=== PATIENT | male | born 1990 | race Caucasian/White ===

== ENCOUNTER 2016-09-22 17:46 | Emergency (ER) ==
[2016-09-22 17:49] VITALS: BP 174/97; TEMP 100.6; BMI 28.4
[2016-09-22] MEDS ORDERED: ZOFRAN 4 MG/2 ML IVP STA (18:04)
[2016-09-22] MEDS ORDERED: SODIUM CHLORIDE 1,000 ML IV STA ×2 (18:04→18:48)
--- NOTE | 2016-09-22 18:05 | ED.PDOC ---
General ED Provider: Dr. JEMMA WALKER JR Chief Complaint: Nausea/Vomiting Stated Complaint: complains of vomiting and diarrhea that started early this morning. emesis x 4. diarrhea x 8. abdominal pain and body aches with fever [ End ] 100.6 106 18 98% 174/97 7/10 NO ONE AT HOME ILL; [employer] WITH SIMILAR ILLNESS Time Seen by Physician: 18:03 Mode of Arrival: Walk-In Information Source: Patient Exam Limitations: No limitations Nursing and Triage Documentation Reviewed and Agree: No Review of Systems - Review Of Systems Constitutional: Reports: No symptoms Eyes: Reports: No symptoms Ears, Nose, Mouth, Throat: Reports: No symptoms Respiratory: Reports: No symptoms Cardiac: Reports: No symptoms GI: Reports: Abdominal pain, Diarrhea (X8), Nausea, Vomiting : Reports: No symptoms Musculoskeletal: Reports: No symptoms Skin: Reports: No symptoms Neurological: Reports: No symptoms Endocrine: Reports: No symptoms Hematologic/Lymphatic: Reports: No symptoms All Other Systems: Other Past Medical History - Past Medical History Previously Healthy: Yes Endocrine: Reports: None Cardiovascular: Reports: None Respiratory: Reports: None Hematological: Reports: None Gastrointestinal: Reports: None Genitourinary: Reports: None Neuro/Psych: Reports: None Musculoskeletal: Reports: None Cancer: Reports: None - Surgical History General Surgical History: Reports: None - Family History Family History: Reports: None - Social History Smoking Status: Current some day smoker Hx Substance Use: No Alcohol Screening: Occasionally Lives: With family Physical Exam - Physical Exam Appearance: Well-appearing, Obese Ill-appearing: Mild Pain Distress: Mild Eyes: REJI, EOMI, Conjunctiva clear ENT: Ears normal, Nose normal, Oropharynx normal Neck: Supple Respiratory: Airway patent, Breath sounds clear, Breath sounds equal, Respirations nonlabored Cardiovascular: RRR, Pulses normal, No rub, No murmur GI/: Soft, No masses, Bowel sounds normal, No Organomegaly, Tender Musculoskeletal: Normal strength Skin: Warm, Dry, Normal color Neurological: Sensation intact, Motor intact, Reflexes intact, Cranial nerves intact, Alert, Oriented Psychiatric: Affect appropriate, Mood appropriate Critical Care Note - Critical Care Note Total Time (mins): 0 Course - Course Hematology/Chemistry: 09/22/16 18:00 09/22/16 18:00 Orders, Labs, Meds: Lab Review 09/22/16 09/22/16 18:00 18:06 WBC 10.22 H RBC 5.52 Hgb 16.5 Hct 46.8 MCV 84.8 MCH 29.9 MCHC 35.3 RDW Coeff of [place] 12.6 Plt Count 193 Immature Gran % (Auto) 0.6 Neut % (Auto) 67.6 Lymph % (Auto) 20.9 [place] % (Auto) 8.4 Eos % (Auto) 2.0 Baso % (Auto) 0.5 Immature Gran # (Auto) 0.1 Neut # 6.9 Lymph # 2.1 [place] # 0.9 Eos # 0.2 Baso # 0.1 Sodium 138 Potassium 3.4 L Chloride 103 Carbon Dioxide 26 Anion Gap 12.4 BUN 15 Creatinine 1.02 Estimated GFR (MDRD) 91.00 BUN/Creatinine Ratio 14.70 Glucose 95 Calcium 9.1 Total Bilirubin 0.56 AST 24 ALT 53 Alkaline Phosphatase 70 Total Protein 7.1 Albumin 4.2 Globulin 2.9 Albumin/Globulin Ratio 1.45 Amylase 50 Lipase 24 Urine Color Yellow Urine Clarity Clear Urine pH 6.0 Ur Specific [place] 1.020 Urine Protein Negative Urine Glucose (UA) Negative Urine Ketones Negative Urine Blood Trace-lysed Urine Nitrite Negative Urine Bilirubin Negative Urine Urobilinogen 2.0 Ur Leukocyte Esterase Negative Urine Microscopic RBC 2-5 Urine Microscopic WBC 2-5 Ur Squamous Epith Cells 0-2 H. pylori IgG Antibody Negative Orders Category Date Time Status ED IV/MEDIPORT/POWERPORT .ONCE EMERGENCY 09/22/16 18:04 Active AMYLASE Stat LAB 09/22/16 18:00 Completed CBC W/ AUTO DIFF Stat LAB 09/22/16 18:00 Completed COMPREHENSIVE METABOLIC PANEL Stat LAB 09/22/16 18:00 Completed H. PYLORI SCREEN Stat LAB 09/22/16 18:00 Completed LIPASE Stat LAB 09/22/16 18:00 Completed URINALYSIS C & S IF INDICATED Stat LAB 09/22/16 18:06 Completed 0.9 % Sodium Chloride [Saline Flush] MEDS 09/22/16 18:04 Ordered 1 syr IVF PRN PRN Ondansetron HCl/Pf [Zofran 4 mg/2 ml] MEDS 09/22/16 18:04 Discontinued 4 mg IVP ONCE STA Sodium Chloride 0.9% [Sodium Chloride] 1,000 ml MEDS 09/22/16 18:04 Discontinued IV BOLUS Sodium Chloride 0.9% [Sodium Chloride] 1,000 ml MEDS 09/22/16 18:48 Active IV BOLUS Medications Generic Name Dose Route Start Last Admin Trade Name Freq PRN Reason Stop Dose Admin Sodium Chloride 1,000 mls @ 200 mls/hr 09/22/16 18:48 09/22/16 19:09 Sodium Chloride IV 09/22/16 23:47 200 mls/hr BOLUS STA Administration Sodium Chloride 1 syr 09/22/16 18:04 09/22/16 18:11 Saline Flush IVF 1 syr PRN PRN Administration To flush IV Discontinued Medications Generic Name Dose Route Start Last Admin Trade Name Freq PRN Reason Stop Dose Admin Sodium Chloride 1,000 mls @ 1,000 mls/hr 09/22/16 18:04 09/22/16 18:11 Sodium Chloride IV 09/22/16 19:03 1,000 mls/hr BOLUS STA Administration Ondansetron HCl 4 mg 09/22/16 18:04 09/22/16 18:11 Zofran 4 Mg/2 Ml IVP 09/22/16 18:05 4 mg ONCE STA Administration Vital Signs: Temp Pulse Resp BP Pulse Ox 09/22/16 17:46 100.6 F H 106 H 18 174/97 H 98 Departure - Departure Time of Disposition: 19:45 Disposition: HOME SELF-CARE Discharge Problem: Gastroenteritis, Hypokalemia due to loss of potassium Instructions: Gastroenteritis (ED), Acute Nausea and Vomiting (ED), Hypokalemia (ED) Condition: Good Pt referred to PMD for follow-up: Yes Additional Instructions: CLEAR LIQUIDS FOR 4-8 HOURS AFTER VOMITING MAY TRY SOLIDS AFTER NAUSEA RESOLVED MAY USE PHENERGAN FOR NAUSEA ONE FOUR TIMES A DAY NEEDED RECOMMEND FRUIT JUICE FOR LOW POTASSIUM THREE EXTRA EIGHT OUNCE CUPS A DAY FOR THREE DAYS Prescriptions: Promethazine HCl [Phenergan Tab] 25 mg PO QID PRN #12 tablet PRN Reason: Nausea / Vomiting Allergies/Adverse Reactions: Allergies No Known Allergies Allergy (Verified 09/22/16 17:49) Home Medications: Ambulatory Orders Promethazine HCl [Phenergan Tab] 25 mg PO QID PRN #12 tablet 09/22/16
[2016-09-22 18:11] LABS: BASOPHILS # (AUTO) 0.1 K/uL (0-0.2); BASOPHILS % (AUTO) 0.5 % (0.0-3.0); EOSINOPHILS # (AUTO) 0.2 K/ul (0.0-0.7); HEMATOCRIT 46.8 % (42.0-52.0); HEMOGLOBIN 16.5 g/dl (14.0-18.0); IMMATURE GRANULOCYTE % (AUTO) 0.6 % (0.0-5.0); LYMPHOCYTES # (AUTO) 2.1 K/uL (0.60-3.4); LYMPHOCYTES % (AUTO) 20.9 (10.0-50.0); MEAN CORPUSCULAR HEMOGLOBIN 29.9 pg (27.0-31.0); MEAN CORPUSCULAR HGB CONC 35.3 (31.8-35.4); MEAN CORPUSCULAR VOLUME 84.8 fl (80.0-94.0); MONOCYTES # (AUTO) 0.9 K/uL (0.4-2.0); MONOCYTES % (AUTO) 8.4 (0-10); NEUTROPHILS # (AUTO) 6.9 K/ul (2.0-6.9); NEUTROPHILS % (AUTO) 67.6; PLATELET COUNT 193 10^3/uL (140-440); RED BLOOD COUNT 5.52 10^6/ul (4.70-6.10); WHITE BLOOD COUNT 10.22 K/ul (4.2-10.2)
[2016-09-22 18:21] LABS: BILIRUBIN,URINE Negative (NEGATIVE); KETONES,URINE Negative (NEGATIVE); LEUKOCYTE ESTERASE ,URINE Negative (NEGATIVE); NITRITE,URINE Negative (NEGATIVE); PROTEIN,URINE Negative (NEGATIVE); URINE, BLOOD Trace-lysed (NEGATIVE)
[2016-09-22 18:23] LABS: H. PYLORI ANTIBODY NEGATIVE (NEGATIVE); H.PYLORI INTERNAL QC INTERNAL QC VALID
[2016-09-22 18:24] LABS: ADD URINE MICROSCOPIC YES
[2016-09-22 18:35] LABS: ALBUMIN 4.2 g/dL (3.4-5.0); ALBUMIN/GLOBULIN RATIO 1.45; ANION GAP 12.4; BILIRUBIN,TOTAL 0.56 mg/dL (0.00-1.20); BUN/CREATININE RATIO 14.7; CALCIUM 9.1 mg/dL (8.2-10.2); CREATININE 1.02 mg/dL (0.60-1.10); POTASSIUM 3.4 mmol/L (3.5-5.1); TOTAL PROTEIN 7.1 g/dL (6.4-8.2)
== END 2016-09-22 20:04 | disposition home or self-care (01) ==
LOC: ED 17:46
DX: K52.9 Noninfective gastroenteritis and colitis, unspecified (principal); E87.6 Hypokalemia; F17.210 Nicotine dependence, cigarettes, uncomplicated
CPT/HCPCS: 36415; 80053; 81001; 82150; 83690; 85025; 86677; 96361; 96374; 99283

== ENCOUNTER 2017-09-04 08:37 | Emergency (ER) ==
[2017-09-04 08:45] VITALS: BP 150/92; TEMP 99.1; BMI 29.6
--- NOTE | 2017-09-04 09:45 | DI ---
EXAM: Chest two views HISTORY: Cough COMPARISON: None TECHNIQUE: Two views of the chest were performed FINDINGS: The lungs are clear. There is no pleural effusion or pneumothorax. The heart is normal i n size. The mediastinal contour is normal. There are no acute abnormalities of the bones. IMPRESSION: No acute cardiopulmonary process.
--- NOTE | 2017-09-04 10:06 | CT ---
EXAM: CT ABDOMEN AND PELVIS HISTORY: Abdominal pain, nausea and vomiting and diarrhea TECHNIQUE: CT abdomen and pelvis without intravenous contrast. Images were reconstructed using 5 mm section thickness. Reformations were prepared. COMPARISON: None FINDINGS: The liver and spleen are unremarkable within limits of this unenhanced exam. Gallbladder, pancreas a nd adrenal glands appear normal. Kidneys and ureters appear normal. Normal abdominal aorta. The stomach is normal. Normal appendix. General bowel gas pattern and appearance is unremarkable. Urinary bladder is normal. No prostate enlargement. There is no ascites or inflammatory infiltratio n of the abdominal fat. Ventral abdominal wall is intact without herniation. Bones appear appropriate for age. Lung bases a re clear. There is no pneumoperitoneum. IMPRESSION: No acute intra-abdominal or pelvic abnormality.
--- NOTE | 2017-09-04 11:22 | ED.PDOC ---
General ED Provider: Dr. MICHAEL BAILEY Chief Complaint: Diarrhea Stated Complaint: abdominal pain FLULIKE SYMPTOMS Time Seen by Physician: 09:00 Mode of Arrival: Walk-In Information Source: Patient Exam Limitations: No limitations Nursing and Triage Documentation Reviewed and Agree: Yes Reviewed sepsis parameters & appropriate labs ordered?: Yes System Inflammatory Response Syndrome: Not Applicable Sepsis Protocol: For patient's 13 years and over: Temp is 96.8 and below OR 101 and greater Pulse >90 BPM Resp >20/minute Acutely Altered Mental Status Are patient's symptoms suggestive of a new infection, such as: -Pneumonia -Skin, Soft Tissue -Endocarditis -UTI -Bone, Joint Infection -Implantable Device -Acute Abdominal Infection -Wound Infection -Meningitis -Blood Stream Catheter Infection -Unknown Review of Systems - Review Of Systems Constitutional: Reports: Chills, Malaise Eyes: Reports: No symptoms Ears, Nose, Mouth, Throat: Reports: Throat pain Respiratory: Reports: No symptoms Cardiac: Reports: No symptoms GI: Reports: Abdominal pain, Diarrhea, Nausea, Vomiting : Reports: No symptoms Musculoskeletal: Reports: No symptoms Skin: Reports: No symptoms Neurological: Reports: No symptoms Endocrine: Reports: No symptoms Hematologic/Lymphatic: Reports: No symptoms All Other Systems: Reviewed and Negative Past Medical History - Past Medical History Previously Healthy: Yes Endocrine: Reports: None Cardiovascular: Reports: None Respiratory: Reports: None Hematological: Reports: None Gastrointestinal: Reports: None Genitourinary: Reports: None Neuro/Psych: Reports: None Musculoskeletal: Reports: None Cancer: Reports: None - Surgical History General Surgical History: Reports: None - Family History Family History: Reports: None - Social History Smoking Status: Current some day smoker Hx Substance Use: No Alcohol Screening: None - Immunizations Tetanus Shot up to Date: Yes Physical Exam - Physical Exam Appearance: Well-appearing, No pain distress, Well-nourished Eyes: REJI, EOMI, Conjunctiva clear ENT: Ears normal, Nose normal, Oropharynx normal Respiratory: Airway patent, Breath sounds clear, Breath sounds equal, Respirations nonlabored Cardiovascular: RRR, Pulses normal, No rub, No murmur GI/: Soft, Nontender, No masses, Bowel sounds normal, No Organomegaly Musculoskeletal: Normal strength, ROM intact, No edema, No calf tenderness Skin: Warm, Dry, Normal color Neurological: Sensation intact, Motor intact, Reflexes intact, Cranial nerves intact, Alert, Oriented Psychiatric: Affect appropriate, Mood appropriate Interpretation - Radiology Interpretation Radiology Interpretation By: Radiologist Radiology Results: Negative Exam Interpreted: CXR Critical Care Note - Critical Care Note Total Time (mins): 0 Course - Course Hematology/Chemistry: 09/04/17 09:25 09/04/17 09:25 Orders, Labs, Meds: Lab Review 09/04/17 09/04/17 09/04/17 09:25 09:25 10:55 WBC 11.01 H RBC 5.43 Hgb 16.6 Hct 46.0 MCV 84.7 MCH 30.6 MCHC 36.1 H RDW Coeff of [place] 12.6 Plt Count 177 Immature Gran % (Auto) 0.4 Neut % (Auto) 81.6 Lymph % (Auto) 8.9 L [place] % (Auto) 6.9 Eos % (Auto) 1.8 Baso % (Auto) 0.4 Immature Gran # (Auto) 0.0 Neut # 9.0 H Lymph # 1.0 [place] # 0.8 Eos # 0.2 Baso # 0.0 Sodium 135 L Potassium 4.3 Chloride 102 Carbon Dioxide 28 Anion Gap 9.3 BUN 17 Creatinine 1.05 Estimated GFR (MDRD) 87.00 BUN/Creatinine Ratio 16.19 Glucose 95 Calcium 9.0 Total Bilirubin 0.7 AST 28 ALT 74 Alkaline Phosphatase 63 Total Protein 7.3 Albumin 4.0 Globulin 3.3 Albumin/Globulin Ratio 1.21 Amylase 40 Lipase 13 Influenza A (Rapid) Negative by naat Influenza B (Rapid) Negative by naat Orders Category Date Time Status AMYLASE Stat LAB 09/04/17 09:25 Completed CBC W/ AUTO DIFF Stat LAB 09/04/17 09:25 Completed COMPREHENSIVE METABOLIC PANEL Stat LAB 09/04/17 09:25 Completed LIPASE Stat LAB 09/04/17 09:25 Completed MOLECULAR GROUP A STREP Stat LAB 09/04/17 10:55 Results RAPID FLU A/B Stat LAB 09/04/17 10:55 Completed STREP SCREEN Stat LAB 09/04/17 10:55 Results URINALYSIS C & S IF INDICATED Stat LAB 09/04/17 09:15 Uncollected CHEST, 2 VIEWS PA & LAT Stat RADS 09/04/17 09:[address] ABDOMEN/PELVIS WO CONTRAST Stat RADS 09/04/17 09:15 Completed Vital Signs: Temp Pulse Resp BP Pulse Ox 09/04/17 08:41 99.1 F 92 H 16 150/92 H 98 Departure - Departure Time of Disposition: 11:22 Disposition: HOME SELF-CARE Discharge Problem: Diarrhea Abdominal pain Qualifiers: Abdominal location: generalized Qualified Code(s): R10.84 - Generalized abdominal pain Instructions: Abdominal Pain (ED) Condition: Good Pt referred to PMD for follow-up: Yes Additional Instructions: Please call your Family Physician as soon as possible to schedule a follow-up appointment. Allergies/Adverse Reactions: Allergies No Known Allergies Allergy (Verified 09/04/17 08:53) Home Medications: Ambulatory Orders 1 [No Reported Medications] 09/04/17 Disposition Discussed With: Patient
== END 2017-09-04 11:29 | disposition home or self-care (01) ==
LOC: ED 08:37
DX: R19.7 Diarrhea, unspecified (principal); R10.84 Generalized abdominal pain; R11.2 Nausea with vomiting, unspecified; F17.210 Nicotine dependence, cigarettes, uncomplicated
CPT/HCPCS: 36415; 80053; 82150; 83690; 85025; 87502; 87651; 87880; 99283

== ENCOUNTER 2018-10-15 10:22 | Emergency (ER) ==
[2018-10-15 10:25] VITALS: BP 152/93; TEMP 99.9; BMI 29.0
--- NOTE | 2018-10-15 11:02 | ED.PDOC ---
General ED Provider: Dr. MICHAEL BAILEY Chief Complaint: Respiratory Complaint Stated Complaint: flu like symp Time Seen by Physician: 10:30 (no resp distress) Mode of Arrival: Walk-In Information Source: Patient Exam Limitations: No limitations Primary Care Provider: DANTE OBRIEN Nursing and Triage Documentation Reviewed and Agree: Yes Does patient meet sepsis criteria?: No If yes, has appropriate treatment been initiated?: No System Inflammatory Response Syndrome: Not Applicable Sepsis Protocol: For patient's 13 years and over: Temp is 96.8 and below OR 101 and greater Pulse >90 BPM Resp >20/minute Acutely Altered Mental Status Are patient's symptoms suggestive of a new infection, such as: -Pneumonia -Skin, Soft Tissue -Endocarditis -UTI -Bone, Joint Infection -Implantable Device -Acute Abdominal Infection -Wound Infection -Meningitis -Blood Stream Catheter Infection -Unknown EENT Complaint Exam - Throat Complaint/Exam Symptoms Are: Still present Timimg: Intermittent Initial Severity: Mild Current Severity: None Aggravating: Reports: None Alleviating: Reports: None Associated Signs and Symptoms: Reports: Cough, Nasal congestion. Denies: Fever , Dysphagia, Drooling, Foreign body sensation, Chills, Wheezing, Hoarseness, Sinus discomfort, Difficulty breathing, Lethargy, Irritability, Decreased activity, Vomiting, Diarrhea, Decreased hearing, Ear drainage Uvula Midline: Yes Мария-tonsillar Fluctuence: No Scarlatinaform Rash Present: No Lesions: Absent: Lip, Gums, Tongue Exanthem: Absent: Lip, Tongue, Buccal Mucosa Stridor Present: No Sinus Tenderness Present: No Tonsillar Hypertrophy Present: No Tonsillar Exudate Present: No Мария-tonsillar Swelling Present: No Adenopathy Present: No Splenomegaly Present: No Differential Diagnoses: Laryngitis, Pharyngitis Review of Systems - Review Of Systems Constitutional: Reports: Malaise Eyes: Reports: No symptoms Ears, Nose, Mouth, Throat: Reports: No symptoms Respiratory: Reports: No symptoms Cardiac: Reports: No symptoms GI: Reports: No symptoms : Reports: No symptoms Musculoskeletal: Reports: No symptoms Skin: Reports: No symptoms Neurological: Reports: No symptoms Endocrine: Reports: No symptoms Hematologic/Lymphatic: Reports: No symptoms All Other Systems: Reviewed and Negative Past Medical History - Past Medical History Previously Healthy: Yes Endocrine: Reports: None Cardiovascular: Reports: None Respiratory: Reports: None Hematological: Reports: None Gastrointestinal: Reports: None Genitourinary: Reports: None Neuro/Psych: Reports: None Musculoskeletal: Reports: None Cancer: Reports: None - Surgical History General Surgical History: Reports: None - Family History Family History: Reports: None - Social History Smoking Status: Former smoker Hx Substance Use: No Alcohol Screening: None Physical Exam - Physical Exam Appearance: Well-appearing, No pain distress, Well-nourished Eyes: REJI, EOMI, Conjunctiva clear ENT: Ears normal, Nose normal, Oropharynx normal Respiratory: Airway patent, Breath sounds clear, Breath sounds equal, Respirations nonlabored Cardiovascular: RRR, Pulses normal, No rub, No murmur GI/: Soft, Nontender, No masses, Bowel sounds normal, No Organomegaly Musculoskeletal: Normal strength, ROM intact, No edema, No calf tenderness Skin: Warm, Dry, Normal color Neurological: Sensation intact, Motor intact, Reflexes intact, Cranial nerves intact, Alert, Oriented Psychiatric: Affect appropriate, Mood appropriate Critical Care Note - Critical Care Note Total Time (mins): 0 Course - Course Orders, Labs, Meds: Orders Category Date Time Status FLU A/B MOLECULAR Stat LAB 10/15/18 10:37 Received RAPID STREP SCREEN [MOLECULAR GROUP A STREP] Stat LAB 10/15/18 10:37 Completed RSV Stat LAB 10/15/18 10:37 Received Vital Signs: Temp Pulse Resp BP Pulse Ox 10/15/18 10:23 99.9 F H 97 H 16 152/93 H 96 Departure - Departure Time of Disposition: 11:11 Disposition: HOME SELF-CARE Discharge Problem: Viral syndrome, Pharyngitis Instructions: Viral Syndrome (ED), Strep Throat (ED), Strep Throat in Children (ED), Pharyngitis (ED) Condition: Good Pt referred to PMD for follow-up: Yes IPMP verified?: No Additional Instructions: Please call your Family Physician as soon as possible to schedule a follow-up appointment. Prescriptions: Amoxicillin 500 mg PO Q6HR #40 tablet Allergies/Adverse Reactions: Allergies No Known Allergies Allergy (Verified 10/15/18 10:25) Home Medications: Ambulatory Orders Amoxicillin 500 mg PO Q6HR #40 tablet 10/15/18 Disposition Discussed With: Patient
== END 2018-10-15 11:44 | disposition home or self-care (01) ==
LOC: ED 10:22
DX: J02.0 Streptococcal pharyngitis (principal); B34.9 Viral infection, unspecified
CPT/HCPCS: 87502; 87651; 87801; 99283